=== PATIENT | male | born 1970 | race Caucasian/White ===

== ENCOUNTER 2018-04-05 15:36 | Inpatient (IN) | payer OTHER ==
[2018-04-05] MEDS ORDERED: SODIUM CHLORIDE 1,000 ML IV STA (15:52)
--- NOTE | 2018-04-05 15:52 | PDOC ---
History of Present Illness - General Chief Complaint: Chest Pain Stated Complaint: CHEST PAIN Time Seen by Provider: 04/05/18 15:40 History Source: Patient Exam Limitations: No Limitations - History of Present Illness Initial Comments: 47 yo M w a hx of HTN, HCL, hypothyroidism, KEVIN, depression presents to the ER [facility] for sudden onset severe Substernal chest pain which came on 1 hour prior to arrival. The patient was sitting down waiting for the train when the pain came on. The pain was rated 9/10 in intensity. He states this has never happened in the past. The pain was a stabbing like sensation without any radiation to the jaw, arm, neck or back. The pain was not associated with nausea , vomiting, or diaphoresis. The pain was associated with mild shortness of breath, which has now resolved in the ER. When EMS got to the patient they administered 4 aspirins and 2 nitros. The patient currently has no chest pain. EMS stated that the EKG on route was unimpressive. EMS states that when they got to the patient he was extremely hypertensive at 230/115. The patient did not take his usual BP meds today of losartan, hydralazine, metoprolol. He [place] the weekend and ran out of his meds. Patient denies any back pain, recent fevers, chills, infections, headache, blurry vision, neck pain, dysuria, frequency, urgency. PCP: NEElizabeth maier, no specific doctor Psh: None reported Allergies: NKA, NKDA Social Hx: Denies currently smoking, drinking or other substance usage. Past History - Past Medical History Allergies/Adverse Reactions: Allergies Allergy/AdvReac Type Severity Reaction Status Date / Time No Known Allergies Allergy Verified 04/05/18 18:22 Review of Systems - Review of Systems Able to Perform ROS?: Yes Constitutional: No: Chills, Diaphoresis, Fever, Loss of Appetite, Malaise, Weakness HEENTM: No: Blurred Vision, Tearing Respiratory: Yes: Orthopnea, Shortness of Breath, SOB with Exertion, SOB at Rest. No: Cough, Stridor, Wheezing Cardiac (ROS): Yes: Chest Pain, Lightheadedness, Chest Tightness. No: Irregular Heart Rate, Palpitations, Syncope ABD/GI: No: Abdominal Distended, Constipated, Diarrhea, Nausea, Poor Fluid Intake, Vomiting : No: Burning, Dysuria, Discharge, Frequency, Flank Pain, Hematuria Musculoskeletal: No: Back Pain, Joint Pain, Muscle Pain, Neck Pain Integumentary: No: See HPI, Bruising, Change in Color Neurological: No: Headache, Numbness, Paresthesia, Seizure, Tingling, Tremors Psychiatric: Yes: Anxiety, Depression Endocrine: No: Excessive Sweating, Flushing, Intolerance to Cold, Intolerance to Heat Hematologic/Lymphatic: No: Anemia, Blood Clots, Easy Bleeding *Physical Exam - Physical Exam General Appearance: Yes: Nourished, Appropriately Dressed, Apparent Distress, Mild Distress, Obese HEENT: positive: EOMI, VERONICA, Normal ENT Inspection, Normal Voice Neck: positive: Supple. negative: Rigid, Decreased range of motion, Lymphadenopathy (R), Lymphadenopathy (L) Respiratory/Chest: positive: Lungs Clear, Normal Breath Sounds. negative: Respiratory Distress, Accessory Muscle Use, Labored Respiration Cardiovascular: positive: Regular Rhythm, Regular Rate, S1, S2. negative: Edema , JVD, Murmur Vascular Pulses: Dorsalis-Pedis (R): 2+, Doralis-Pedis (L): 2+ Gastrointestinal/Abdominal: positive: Normal Bowel Sounds, Soft. negative: Guarding, Rebound Rectal Exam: positive: deferred Lymphatic: negative: Adenopathy Musculoskeletal: positive: Normal Inspection. 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 NML intact, Fully Oriented, Alert, Normal Mood/ Affect, Normal Response, Motor Strength /5 ED Treatment Course - LABORATORY CBC & Chemistry Diagram: 04/05/18 16:11 04/05/18 15:53 - ADDITIONAL ORDERS Additional order review: Laboratory Results 04/05/18 04/05/18 04/05/18 16:11 16:11 15:53 PT with INR 11.80 INR 1.00 PTT (Actin FS) 31.6 Sodium 142 Potassium 3.8 Chloride 106 Carbon Dioxide 31 Anion Gap 5 L BUN 19 H Creatinine 1.3 Creat Clearance w eGFR 58.67 Random Glucose 112 H Calcium 8.9 Magnesium 2.2 Total Bilirubin 0.4 AST 30 ALT 31 Alkaline Phosphatase 86 Creatine Kinase 141 Troponin I 0.23 H B-Natriuretic Peptide 1550.4 H Total Protein 6.6 Albumin 3.6 Lipase 217 Blood Type B POSITIVE Antibody Screen Negative 04/05/18 16:11 RBC 4.32 MCV 88.5 MCHC 36.0 H RDW 13.7 MPV 8.0 Neutrophils % 76.2 Lymphocytes % 11.7 Monocytes % 9.5 Eosinophils % 1.9 Basophils % 0.7 - RADIOLOGY Radiology Studies Ordered: Category Date Time Status CHEST PA & LAT [RAD] Stat Radiology 04/05/18 15:53 Ordered - Medications Given in the ED: ED Medications Discontinued Medications Generic Name Dose Route Start Last Admin Trade Name Freq PRN Reason Stop Dose Admin Sodium Chloride 1,000 mls @ 1,000 mls/hr 04/05/18 15:52 04/05/18 15:55 Normal Saline - IV 04/05/18 16:51 1,000 mls/hr ASDIR STA Administration Medical Decision Making - Medical Decision Making 47 yo M w a hx of HTN, HCL, hypothyroidism, KEVIN, depression presents to the ER [facility] for sudden onset severe Substernal chest pain which came on 1 hour prior to arrival. - Pain currently resolved. - Patient currently has no complaints. DDx IBNLT: ACS, Heart failure, GERD, Dissection, PE, MSk pain, esophagitis, PNA , Pneumothorax Plan: Labs, EKG, CXR, re-assess. - Troponin elevated to 0.23 - Patient is having an NSTEMI - will Admit to Tele and start treatment in the ER. - Cardiology Consulted - Dr. Efra Austin. *DC/Admit/Observation/Transfer Diagnosis at time of Disposition: NSTEMI (non-ST elevated myocardial infarction) - Discharge Dispostion Decision to Admit order: Yes - Referrals - Patient Instructions - Post Discharge Activity
[2018-04-05 16:25] LABS: HEMATOCRIT 38.2 % (35.4-49); HEMOGLOBIN 13.8 GM/dL (11.7-16.9); RBC 4.32 M/mm3 (4.00-5.60); WHITE BLOOD COUNT 5.2 K/mm3 (4.0-10.0)
[2018-04-05 16:26] LABS: BASO % 0.7 % (0-2.0); EOS % 1.9 % (0-4.5); LYMPH % 11.7 % (8-40); MCH 31.9 pg (25.7-33.7); MEAN CELL VOLUME 88.5 fl (80-96); MONO % 9.5 % (3.8-10.2); NEUT % 76.2 % (42.8-82.8); PLATELET COUNT 175 K/MM3 (134-434); RDW 13.7 % (11.9-15.9)
--- NOTE | 2018-04-05 16:45 | PDOC ---
Attending Attestation - Resident Resident Name: LibbymarthaFidencio - ED Attending Attestation I have performed the following: I have examined & evaluated the patient, The case was reviewed & discussed with the resident, I agree w/resident's findings & plan - [facility] HPI: 04/05/18 17:33 47 yo M w a hx of HTN, HCL, hypothyroidism, KEVIN, depression presents to the ER [facility] for sudden onset severe Substernal sharp chest pain which came on 1 hour prior to arrival, nonexertional and nonradiating. The pain was rated 9/10 in intensity. +mild shortness of breath, which has now resolved in the ER. EMS administered 4 aspirins and 2 nitros, with relief. EMS states that when they got to the patient he was extremely hypertensive at 230/115. The patient did not take his usual BP meds today of losartan, hydralazine, metoprolol. He is visiting [email or web address] for the weekend and ran out of his meds. No recent long travel history/immobilization or surgeries. +family history of SD/CAD in father in 60s 04/05/18 17:36 - Physicial Exam PE: 04/05/18 17:34 NAD, well appearing, PERRL, EOMI, nl conjunctiva, anicteric; neck supple. lungs clear, soft holosystolic murmur, abdomen soft nontender, morbidly obese. TURNER x4 , no focal neuro deficits. trace peripheral edema. normal color for ethnicity, WWP. no calf tenderness. 04/05/18 19:20 - Medical Decision Making 04/05/18 17:37 See HPI for details DDx chest pain: ACS, arrhythmia, angina, PE, dissection, PUD, esophageal spasm, GERD, gastritis, costochondritis, pneumonia, pleurisy, pericarditis/ myocarditis. dehydration, electrolyte/metabolic derangements. Considered but clinically doubt based on HPI and PE: PE/Dissection Vital signs reviewed, wnl. Prior notes reviewed, including admissions, discharges and consultations. laboratory results and imaging reviewed, basic labs and lytes wnl, normal coags. Cardiac panel_positive trop 0.23, elevated bnp 1500, could be atrial/ ventricular strain/chronic. EKG normal sinus rhythm, no interval abnormalities, normal axis, narrow QRS, ST and T wave segments and morphology normal. Nonspecific T wave abnormalities = no elevations/depressions ED course: ASA 162 mg x1 HEART score 7, high risk chest pain. Currently chest pain free. Given home dose hydralazine 50mg x1 now, HTN resolving, off meds, autoregulated. No events on tele monitor. Cardiology cs, [facility]. spoke with Dr Lyle, agree with lovenox and tele monitoring, possible cath to be determined in the morning after eval. Dispo: Admit for NSTEMI. Discussed results and management plan with pt and family member at bedside, agree with impression and plan Admit to hospitalist service, PMD in [place]. No prior cardiology visits/ physician. 04/05/18 17:43 04/05/18 19:21 Heart Score/ECG Review - History History: Moderately suspicious - Electrocardiogram EKG: Non specific repolarization disturbance - Age Age: 45-65 - Risk Factors Risk Factors Heart Score: Yes Hx Hypercholesterolemia, Yes Hx Hypertension, Yes Positive family hx of cardiac disease, Yes Hx Obesity Based on the list above the patient has:: >/=3 risk factors or Hx atherosclerotic disease - Troponin Troponin: >/=3x normal limit - Score Heart Score - Total: 7 - ECG Impressions Normal ECG: No Comment:: 04/05/18 17:43 EKG normal sinus rhythm, no interval abnormalities, normal axis, narrow QRS, ST and T wave segments and morphology normal. Nonspecific T wave abnormalities
[2018-04-05 16:55] LABS: PROTHROMBIN TIME (PATIENT) 11.8 SEC (9.7-13.0)
[2018-04-05 16:58] LABS: ACTIVATED PTT 31.6 SECONDS (25.2-36.5)
[2018-04-05 17:00] LABS: ALBUMIN 3.6 g/dl (3.4-5.0); ALK PHOS 86 U/L (45-117); ANION GAP 5 MMOL/L (8-16); BILIRUBIN,TOTAL 0.4 mg/dL (0.2-1); BLOOD UREA NITROGEN 19 mg/dL (7-18); CALCIUM 8.9 mg/dL (8.5-10.1); CHLORIDE 106 mmol/L (98-107); CO2 31 mmol/L (21-32); CREATININE 1.3 mg/dL (0.55-1.3); GLUCOSE,RANDOM 112 mg/dL (74-106); LIPASE 217 U/L (73-393); MAGNESIUM 2.2 mg/dL (1.8-2.4); N-TERMINAL BNP 1550.4 pg/ml (5-125); POTASSIUM 3.8 mmol/L (3.5-5.1); SGOT/AST 30 U/L (15-37); SGPT/ALT 31 U/L (13-61); SODIUM 142 mmol/L (136-145); TOT PROT 6.6 g/dl (6.4-8.2)
[2018-04-05] MEDS ORDERED: ASPIRIN 81 MG CHEWABLE TABLETS PO ONE ×2 (17:16)
[2018-04-05] MEDS ORDERED: hydrALAZINE HCL 50 MG TABLET (FP) PO ONE (17:29)
[2018-04-05] MEDS ORDERED: ENOXAPARIN NA (PORCINE) 120 MG/0.8 ML DISP.SYRIN SQ SCH (17:45)
--- NOTE | 2018-04-05 18:22 | HP ---
CHIEF COMPLAINT: chest pain PCP: @ [facility] HISTORY OF PRESENT ILLNESS: Patient is a 47 year old male with a significant past medical history of hypertension, HLD, hypothyroidism, KEVIN, morbid obesity and depression. Patient presents to the ED via EMS for sudden onset of severe chest pain that he describes as sharp and unrelenting. Patient states the pain was non radiating and associated with shortness of breath. Chest pain now resolved after he was given Nitrogycerin 2 tabs and ASA 325mg by EMS. He was also noted to be extremely hypertensive while en route to the ED. Patient states that he did not take his cardiac medications for the past few days because he ran out of his medications. He denies any recent travel, denies any surgeries or prolonged immobilization. ER course was notable for: (1) trop 0.23 (2) ekg nsr left atrial enlargement, prolonged qt @ 483 (3) bnp 1600 Recent Travel: none PAST MEDICAL HISTORY: PAST SURGICAL HISTORY: Social History:+family history of MA/CAD in father in 60s Smoking: n/a Alcohol: n/a Drugs: n/a Family History: Allergies No Known Allergies Allergy (Verified 04/05/18 18:22) PHYSICAL EXAMINATION GENERAL: Awake, alert, and fully oriented, in no acute distress. HEAD: Normal with no signs of trauma. EYES: Pupils equal, round and reactive to light, extraocular movements intact, sclera anicteric, conjunctiva clear. No lid lag. EARS, NOSE, THROAT: Ears normal, nares patent, oropharynx clear without exudates. Moist mucous membranes. NECK: Normal range of motion, supple without lymphadenopathy, JVD, or masses. LUNGS: Breath sounds equal, clear to auscultation bilaterally. No wheezes, and no crackles. No accessory muscle use. HEART: Regular rate and rhythm, normal S1 and S2 without murmur, rub or gallop. ABDOMEN: Soft, nontender, not distended, normoactive bowel sounds, no guarding, no rebound, no masses. No hepatomegaly or splenomegaly. MUSCULOSKELETAL: Normal range of motion at all joints. No bony deformities or tenderness. No CVA tenderness. UPPER EXTREMITIES: 2+ pulses, warm, well-perfused. No cyanosis. No clubbing. No peripheral edema. LOWER EXTREMITIES: 2+ pulses, warm, well-perfused. No calf tenderness. No peripheral edema. NEUROLOGICAL: Cranial nerves II-XII intact. Normal speech. Normal gait. PSYCHIATRIC: Cooperative. Good eye contact. Appropriate mood and affect. SKIN: Warm, dry, normal turgor, no rashes or lesions noted, normal capillary refill. Laboratory Results - last 24 hr 04/05/18 04/05/18 04/05/18 15:53 16:11 16:11 WBC 5.2 RBC 4.32 Hgb 13.8 Hct 38.2 MCV 88.5 MCH 31.9 MCHC 36.0 H RDW 13.7 Plt Count 175 MPV 8.0 Absolute Neuts (auto) 4.0 Neutrophils % 76.2 Lymphocytes % 11.7 Monocytes % 9.5 Eosinophils % 1.9 Basophils % 0.7 Nucleated RBC % 0 PT with INR 11.80 INR 1.00 PTT (Actin FS) 31.6 Sodium 142 Potassium 3.8 Chloride 106 Carbon Dioxide 31 Anion Gap 5 L BUN 19 H Creatinine 1.3 Creat Clearance w eGFR 58.67 Random Glucose 112 H Calcium 8.9 Magnesium 2.2 Total Bilirubin 0.4 AST 30 ALT 31 Alkaline Phosphatase 86 Creatine Kinase 141 Troponin I 0.23 H B-Natriuretic Peptide 1550.4 H Total Protein 6.6 Albumin 3.6 Lipase 217 Blood Type Antibody Screen 04/05/18 16:11 WBC RBC Hgb Hct MCV MCH MCHC RDW Plt Count MPV Absolute Neuts (auto) Neutrophils % Lymphocytes % Monocytes % Eosinophils % Basophils % Nucleated RBC % PT with INR INR PTT (Actin FS) Sodium Potassium Chloride Carbon Dioxide Anion Gap BUN Creatinine Creat Clearance w eGFR Random Glucose Calcium Magnesium Total Bilirubin AST ALT Alkaline Phosphatase Creatine Kinase Troponin I B-Natriuretic Peptide Total Protein Albumin Lipase Blood Type B POSITIVE Antibody Screen Negative ASSESSMENT/PLAN: Patient is a 47 year old male with a significant past medical history of hypertension, HLD, hypothyroidism, KEVIN, morbid obesity and depression. Patient presents to the ED via EMS for sudden onset of severe chest pain that he describes as sharp and unrelenting. Patient states the pain was non radiating and associated with shortness of breath. Chest pain now resolved after he was given Nitrogycerin 2 tabs and ASA 325mg by EMS. He was also noted to be extremely hypertensive while en route to the ED. Patient states that he did not take his cardiac medications for the past few days because he ran out of his medications. He denies any recent travel, denies any surgeries or prolonged immobilization. ER course was notable for: (1) trop 0.23 (2) ekg nsr left atrial enlargement, prolonged qt @ 483 Chest pain, acute Rule out ACS monitor on tele Given full dose lovenox 150mg and asa 325mg with nitro tabs trend troponins, 1st troponin elevated @ .23 Nitro prn for chest pain Monitor BP in the setting of medication non compliance cardiology consulted repeat EKG in a.m. and monitor qtc echo ordered Hypertension, uncontrolled Monitor BP, patient reports non compliance with home meds HLD Lipid panel in a.m. [id number] ordered Endocrine TSH in a.m. hx of Hypothyroidism, on synthroid Depression On anti depressants monitor qtc with daily ekgs fen oral intake sufficient monitor electrolytes low salt diet prophy lovenox Visit type - Emergency Visit Emergency Visit: Yes ED Registration Date: 04/05/18 Care time: The patient presented to the Emergency Department on the above date and was hospitalized for further evaluation of their emergent condition. - New Patient This patient is new to me today: Yes Date on this admission: 04/06/18 - Critical Care Critical Care patient: No
[2018-04-05] MEDS ORDERED: NITROGLYCERIN SUBLINGUAL 1/200 0.3 MG BTL SL PRN (18:23)
[2018-04-05] MEDS ORDERED: ENOXAPARIN 120 MG, ENOXAPARIN 30 MG SQ ONE (18:45)
[2018-04-05] MEDS ORDERED: hydrALAZINE HCL 25 MG TABLET (FP) ONE (20:38)
[2018-04-05] MEDS ORDERED: ASPIRIN 81 MG CHEWABLE TABLETS ONE (20:38)
[2018-04-05] MEDS ORDERED: ENOXAPARIN NA (PORCINE) 100 MG/1 ML DISP.SYRIN SQ ONE (20:39)
[2018-04-05] MEDS ORDERED: ENOXAPARIN NA (PORCINE) 60 MG/0.6 ML DISP.SYRIN SQ ONE (20:39)
[2018-04-05] MEDS ORDERED: ATORVASTATIN CA 40 MG TABLET (FP) PO SCH (22:00)
[2018-04-05] MEDS ORDERED: ATORVASTATIN CA 40 MG TABLET (FP) ONE (22:16)
[2018-04-05] MEDS: hydrALAZINE HCL 50 MG TABLET (FP) PO SCH (22:16)
[2018-04-06 05:46] LABS: BASO % 0.9 % (0-2.0); EOS % 2.7 % (0-4.5); HEMOGLOBIN 13.8 GM/dL (11.7-16.9); LYMPH % 13.7 % (8-40); MCH 29.9 pg (25.7-33.7); MCHC 33.6 g/dl (32.0-35.9); MEAN CELL VOLUME 89.2 fl (80-96); MEAN PLT VOLUME 7.8 fl (7.5-11.1); MONO % 10.6 % (3.8-10.2); NEUT % 72.1 % (42.8-82.8); PLATELET COUNT 155 K/MM3 (134-434); RDW 13.7 % (11.9-15.9); WHITE BLOOD COUNT 5.3 K/mm3 (4.0-10.0)
[2018-04-06 06:44] LABS: ALBUMIN 3.3 g/dl (3.4-5.0); ALK PHOS 72 U/L (45-117); ANION GAP 7 MMOL/L (8-16); BILIRUBIN,TOTAL 0.7 mg/dL (0.2-1); BLOOD UREA NITROGEN 17 mg/dL (7-18); CALCIUM 8.5 mg/dL (8.5-10.1); CHLORIDE 106 mmol/L (98-107); CO2 28 mmol/L (21-32); GLUCOSE,RANDOM 104 mg/dL (74-106); POTASSIUM 3.7 mmol/L (3.5-5.1); SGOT/AST 34 U/L (15-37); SGPT/ALT 34 U/L (13-61); SODIUM 141 mmol/L (136-145); TOT PROT 6.5 g/dl (6.4-8.2)
[2018-04-06] MEDS ORDERED: LEVOTHYROXINE NA 175 MCG TABLET PO SCH (07:00)
[2018-04-06] MEDS ORDERED: hydrALAZINE HCL 25 MG TABLET (FP) ONE (08:20)
[2018-04-06] MEDS: hydrALAZINE HCL 50 MG TABLET (FP) PO SCH ×2 (08:22→15:06)
[2018-04-06] MEDS ORDERED: CITALOPRAM HYDROBROMIDE 20 MG TABLET (FP) PO SCH (10:00)
[2018-04-06] MEDS ORDERED: FUROSEMIDE 40 MG TABLET (FP) PO SCH (10:00)
[2018-04-06] MEDS ORDERED: ASPIRIN COATED 81 MG TABLET.EC PO SCH (10:00)
[2018-04-06] MEDS ORDERED: METOPROLOL TARTRATE 50 MG TABLET (FP) PO SCH ×2 (10:00→22:00)
--- NOTE | 2018-04-06 11:27 | EKG ---
Test Reason : Blood Pressure : / mmHG Vent. Rate : 079 BPM Atrial Rate : 079 BPM P-R Int : 148 ms QRS Dur : 104 ms QT Int : 422 ms P-R-T Axes : 026 024 089 degrees QTc Int : 483 ms POOR DATA QUALITY, INTERPRETATION MAY BE ADVERSELY AFFECTED NORMAL SINUS RHYTHM POSSIBLE LEFT ATRIAL ENLARGEMENT NONSPECIFIC T WAVE ABNORMALITY PROLONGED QT ABNORMAL ECG NO PREVIOUS ECGS AVAILABLE Confirmed by YANELI MOORE, JONATAN ([id number]) on 04/06/2018 11:27:24 AM Referred By: Confirmed By:JONATAN GROVES MD
[2018-04-06 12:53] LABS: URINE APPEARANCE CLEAR; URINE BILIRUBIN NEGATIVE (<2.0 mg/dL); URINE COLOR LTYELLOW; URINE GLUCOSE (UA) NEGATIVE (NEGATIVE); URINE KETONE NEGATIVE (NEGATIVE); URINE LEUK ESTERASE NEGATIVE (NEGATIVE); URINE NITRITE NEGATIVE (NEGATIVE); URINE PROTEIN NEGATIVE (NEGATIVE)
[2018-04-06 14:41] VITALS: BMI 48.8
[2018-04-06] MEDS ORDERED: ENOXAPARIN NA (PORCINE) 120 MG/0.8 ML DISP.SYRIN SQ ONE (15:00)
--- NOTE | 2018-04-06 15:58 | CON.CARD ---
Consult Consult Specialty:: Cardiology - History of Present Illness Chief Complaint: Chest pain History of Present Illness: This is a 47 year old male with a PMH of HTN and obesity. He presents now with an episode of severe sharp chest pain. He missed 2 days of his antihypertensive regimen consisting of losartan, hydralazine, and metoprolol. EMS found a BP of 230/115 mmHg. The CP was stabbing, non radiating, and non exertional. Troponin are 0.23, 0.26, and 0.23. EKG without acute changes. Presently in the ICU he is CP free. - Alcohol/Substance Use Hx Alcohol Use: No - Smoking History Smoking history: Never smoked Have you smoked in the past 12 months: No Home Medications - Allergies Allergies/Adverse Reactions: Allergies Allergy/AdvReac Type Severity Reaction Status Date / Time No Known Allergies Allergy Verified 04/05/18 18:22 - Home Medications Home Medications: Ambulatory Orders Aspirin [ASA -] 81 mg PO DAILY 04/05/18 Atorvastatin Ca [Lipitor] 40 mg PO HS 04/05/18 Citalopram Hydrobromide [Citalopram HBr] 20 mg PO DAILY 04/05/18 Furosemide [Lasix] 40 mg PO DAILY 04/05/18 Hydralazine HCl 50 mg PO TID 04/05/18 Levothyroxine [Synthroid -] 175 mcg PO DAILY 04/05/18 Lisinopril [Prinivil -] 40 mg PO DAILY 04/05/18 Metoprolol Tartrate 100 mg PO DAILY 04/05/18 Vital Signs: Vital Signs Temperature 98.6 F 04/06/18 14:22 Pulse Rate 120 H 04/06/18 14:22 Respiratory Rate 25 H 04/06/18 14:22 Blood Pressure 164/105 H 04/06/18 14:22 O2 Sat by Pulse Oximetry (%) 98 04/06/18 10:00 Constitutional: Yes: Well Nourished, No Distress Eyes: Yes: WNL HENT: Yes: WNL Neck: Yes: WNL Respiratory: Yes: CTA Bilaterally Gastrointestinal: Yes: Normal Bowel Sounds Cardiovascular: Yes: Regular Rate and Rhythm Heart Sounds: Yes: S1, S2 (NO MRHG) Extremities: Yes: WNL Edema: No Neurological: Yes: Alert, Oriented (Non focal) - Other Data Labs, Other Data: CBC, BMP 04/06/18 05:12 04/06/18 05:12 INR, PTT INR 1.00 (0.83-1.09) 04/05/18 16:11 Troponin, BNP 04/05/18 04/05/18 04/06/18 15:53 19:00 00:20 Troponin I 0.23 H 0.26 H B-Natriuretic Peptide 1550.4 H 1689.5 H 04/06/18 05:12 Troponin I 0.23 H B-Natriuretic Peptide Troponin, BNP 04/05/18 04/05/18 04/06/18 15:53 19:00 00:20 Troponin I 0.23 H 0.26 H B-Natriuretic Peptide 1550.4 H 1689.5 H 04/06/18 05:12 Troponin I 0.23 H B-Natriuretic Peptide Assessment/Plan 47 year old male with a PMH of HTN and obesity. He presents now with an episode of severe sharp chest pain. He missed 2 days of his antihypertensive regimen consisting of losartan, hydralazine, and metoprolol. EMS found a BP of 230/115 mmHg. The CP was stabbing, non radiating, and non exertional. Troponin are 0.23 , 0.26, and 0.23. EKG without acute changes. He also gets exertional chest pain on occasion. Chest pain Sharp, in the setting of a very high BP Would obtain a Chest CT to rule out dissection Coronary disease is another possibility. Agree with Metoprolol, but would give tartrate twice daily, so would give metoprolol tartrate 50 mg twice daily. Continue Hydralizine 50 mg PO TID and Lasix 40 mg PO daily Continue ASA 81 mg daily Continue trending enzymes, if CT scan is negative for dissection and enzymes are trending up, or chest pain returns, would AC with lovenox. Will arrange for transfer to [facility] in the AM for a for cardiac cath.
--- NOTE | 2018-04-06 17:17 | PN ---
Physical Exam: SUBJECTIVE: Patient seen and examined in tele icu. denies chest pain or shortness of breath. OBJECTIVE: Vital Signs Period Temp Pulse Resp BP Sys/Serna Pulse Ox Last 24 Hr 98.0 F-98.6 F 77-121 16-25 164-184/77-105 96-100 GENERAL: Awake, alert, and fully oriented, in no acute distress. HEAD: Normal with no signs of trauma. EYES: Pupils equal, round and reactive to light, extraocular movements intact, sclera anicteric, conjunctiva clear. No lid lag. EARS, NOSE, THROAT: Ears normal, nares patent, oropharynx clear without exudates. Moist mucous membranes. NECK: Normal range of motion, supple without lymphadenopathy, JVD, or masses. LUNGS: Breath sounds equal, clear to auscultation bilaterally. No wheezes, and no crackles. No accessory muscle use. HEART: Regular rate and rhythm, normal S1 and S2 without murmur, rub or gallop. ABDOMEN: Soft, nontender, not distended, normoactive bowel sounds, no guarding, no rebound, no masses. No hepatomegaly or splenomegaly. MUSCULOSKELETAL: Normal range of motion at all joints. No bony deformities or tenderness. No CVA tenderness. UPPER EXTREMITIES: 2+ pulses, warm, well-perfused. No cyanosis. No clubbing. No peripheral edema. LOWER EXTREMITIES: 2+ pulses, warm, well-perfused. No calf tenderness. No peripheral edema. NEUROLOGICAL: Cranial nerves II-XII intact. Normal speech. Normal gait. PSYCHIATRIC: Cooperative. Good eye contact. Appropriate mood and affect. SKIN: Warm, dry, normal turgor, no rashes or lesions noted, normal capillary refill. Laboratory Results - last 24 hr 04/05/18 04/05/18 04/05/18 16:11 19:00 19:00 WBC RBC Hgb Hct MCV MCH MCHC RDW Plt Count MPV Absolute Neuts (auto) Neutrophils % Lymphocytes % Monocytes % Eosinophils % Basophils % Nucleated RBC % Sodium Potassium Chloride Carbon Dioxide Anion Gap BUN Creatinine Creat Clearance w eGFR Random Glucose Hemoglobin A1c % Calcium Magnesium Total Bilirubin AST ALT Alkaline Phosphatase Troponin I B-Natriuretic Peptide 1689.5 H Total Protein Albumin Triglycerides Cholesterol Total LDL Cholesterol HDL Cholesterol TSH Free T4 Urine Color Urine Appearance Urine pH Ur Specific [place] Urine Protein Urine Glucose (UA) Urine Ketones Urine Blood Urine Nitrite Urine Bilirubin Urine Urobilinogen Ur Leukocyte Esterase Blood Type B POSITIVE B POSITIVE Antibody Screen Negative 04/06/18 04/06/18 04/06/18 00:20 05:12 05:12 WBC 5.3 RBC 4.60 Hgb 13.8 Hct 41.0 MCV 89.2 MCH 29.9 MCHC 33.6 RDW 13.7 Plt Count 155 MPV 7.8 Absolute Neuts (auto) 3.9 Neutrophils % 72.1 Lymphocytes % 13.7 Monocytes % 10.6 H Eosinophils % 2.7 Basophils % 0.9 Nucleated RBC % 0 Sodium 141 Potassium 3.7 Chloride 106 Carbon Dioxide 28 Anion Gap 7 L BUN 17 Creatinine 1.0 Creat Clearance w eGFR > 60 Random Glucose 104 Hemoglobin A1c % Calcium 8.5 Magnesium 2.0 Total Bilirubin 0.7 AST 34 ALT 34 Alkaline Phosphatase 72 Troponin I 0.26 H B-Natriuretic Peptide Total Protein 6.5 Albumin 3.3 L Triglycerides Cholesterol Total LDL Cholesterol HDL Cholesterol TSH 10.90 H Free T4 Urine Color Urine Appearance Urine pH Ur Specific [place] Urine Protein Urine Glucose (UA) Urine Ketones Urine Blood Urine Nitrite Urine Bilirubin Urine Urobilinogen Ur Leukocyte Esterase Blood Type Antibody Screen 04/06/18 04/06/18 04/06/18 05:12 05:12 11:30 WBC RBC Hgb Hct MCV MCH MCHC RDW Plt Count MPV Absolute Neuts (auto) Neutrophils % Lymphocytes % Monocytes % Eosinophils % Basophils % Nucleated RBC % Sodium Potassium Chloride Carbon Dioxide Anion Gap BUN Creatinine Creat Clearance w eGFR Random Glucose Hemoglobin A1c % 5.8 Calcium Magnesium Total Bilirubin AST ALT Alkaline Phosphatase Troponin I 0.23 H B-Natriuretic Peptide Total Protein Albumin Triglycerides 154 H Cholesterol 157 Total LDL Cholesterol 90 HDL Cholesterol 41 TSH Free T4 0.73 L Urine Color Ltyellow Urine Appearance Clear Urine pH 7.0 Ur Specific [place] 1.015 Urine Protein Negative Urine Glucose (UA) Negative Urine Ketones Negative Urine Blood Negative Urine Nitrite Negative Urine Bilirubin Negative Urine Urobilinogen 2.0 Ur Leukocyte Esterase Negative Blood Type Antibody Screen Active Medications Generic Name Dose Route Start Last Admin Trade Name Freq PRN Reason Stop Dose Admin Aspirin 81 mg 04/06/18 10:00 04/06/18 10:38 Ecotrin - PO 81 mg DAILY KAROLYN Administration Atorvastatin Calcium 40 mg 04/05/18 22:00 04/05/18 22:22 Lipitor - PO 40 mg HS KAROLYN Administration Citalopram Hydrobromide 20 mg 04/06/18 10:00 04/06/18 10:39 Celexa - PO 20 mg DAILY KAROLYN Administration Enoxaparin Sodium 120 mg/ 150 mg 04/07/18 03:00 Enoxaparin Sodium 30 mg SQ Q12H KAROLYN Furosemide 40 mg 04/06/18 10:00 04/06/18 10:39 Lasix - PO 40 mg DAILY KAROLYN Administration Hydralazine HCl 50 mg 04/05/18 22:00 04/06/18 15:06 Apresoline - PO 50 mg TID KAROLYN Administration Levothyroxine Sodium 175 mcg 04/06/18 07:00 04/06/18 11:21 Synthroid - PO 175 mcg DAILY@0700 KAROLYN Administration Metoprolol Tartrate 50 mg 04/06/18 22:00 Lopressor - PO BID KAROLYN Nitroglycerin 0.3 mg 04/05/18 18:23 Nitrostat - SL Q5M PRN FOR CHEST PAIN ASSESSMENT/PLAN: Patient is a 47 year old male with a significant past medical history of hypertension, HLD, hypothyroidism, KEVIN, morbid obesity and depression. Patient presents to the ED via EMS for sudden onset of severe chest pain that he describes as sharp and unrelenting. Patient states the pain was non radiating and associated with shortness of breath. Chest pain resolved after he was given Nitrogycerin 2 tabs and ASA 325mg by EMS. Cardiology: Chest pain, resolved. troponins 0.23, 0.26, 0.23 On Lovenox 150mg bid patient for cardiac cath tomorrow as per cardiology recommendations, ct scan of chest w/contrast ordered to r/o dissection. Will continue to trend trops. Echo orderd Hypertension, uncontrolled Metoprolol changed to metoprolol succ 50mg bid. monitor bp HLD Lipid panel in a.m. [id number] Endocrine hx of Hypothyroidism, on synthroid TSH elevated patient non compliance with synthroid (admits to missing some doses) Will need repeat tsh level outpatient Depression On anti depressants monitor qtc fen oral intake sufficient monitor electrolytes low salt diet prophy lovenox bid Visit type - Emergency Visit Emergency Visit: Yes ED Registration Date: 04/05/18 Care time: The patient presented to the Emergency Department on the above date and was hospitalized for further evaluation of their emergent condition. - New Patient This patient is new to me today: No - Critical Care Critical Care patient: No - Discharge Referral Referred to [id number] Med P.C.: No
[2018-04-06 18:08] VITALS: TEMP 98.2
[2018-04-06] MEDS ORDERED: hydrALAZINE HCL 50 MG TABLET (FP) PO ONE (19:30)
[2018-04-06 19:46] VITALS: BP 187/105; PULSE 73
--- NOTE | 2018-04-06 20:32 | DS ---
Physical Exam: SUBJECTIVE: Patient seen and examined at the bedside. OBJECTIVE: Vital Signs Period Temp Pulse Resp BP Sys/Serna Pulse Ox Last 24 Hr 98.0 F-98.6 F 70-110 16-25 148-187/72-105 96-100 PHYSICAL EXAM GENERAL: Awake, alert, and fully oriented, in no acute distress. HEAD: Normal with no signs of trauma. EYES: Pupils equal, round and reactive to light, extraocular movements intact, sclera anicteric, conjunctiva clear. No lid lag. EARS, NOSE, THROAT: Ears normal, nares patent, oropharynx clear without exudates. Moist mucous membranes. NECK: Normal range of motion, supple without lymphadenopathy, JVD, or masses. LUNGS: Breath sounds equal, clear to auscultation bilaterally. No wheezes, and no crackles. No accessory muscle use. HEART: Regular rate and rhythm, normal S1 and S2 without murmur, rub or gallop. ABDOMEN: Soft, nontender, not distended, normoactive bowel sounds, no guarding, no rebound, no masses. No hepatomegaly or splenomegaly. MUSCULOSKELETAL: Normal range of motion at all joints. No bony deformities or tenderness. No CVA tenderness. UPPER EXTREMITIES: 2+ pulses, warm, well-perfused. No cyanosis. No clubbing. No peripheral edema. LOWER EXTREMITIES: 2+ pulses, warm, well-perfused. No calf tenderness. No peripheral edema. NEUROLOGICAL: Normal speech. Normal gait. PSYCHIATRIC: Cooperative. Good eye contact. Appropriate mood and affect. SKIN: Warm, dry, normal turgor, no rashes or lesions noted, normal capillary refill. LABS Laboratory Results - last 24 hr 04/05/18 04/06/18 04/06/18 19:00 00:20 05:12 WBC RBC Hgb Hct MCV MCH MCHC RDW Plt Count MPV Absolute Neuts (auto) Neutrophils % Lymphocytes % Monocytes % Eosinophils % Basophils % Nucleated RBC % Sodium 141 Potassium 3.7 Chloride 106 Carbon Dioxide 28 Anion Gap 7 L BUN 17 Creatinine 1.0 Creat Clearance w eGFR > 60 Random Glucose 104 Hemoglobin A1c % Calcium 8.5 Magnesium 2.0 Total Bilirubin 0.7 AST 34 ALT 34 Alkaline Phosphatase 72 Troponin I 0.26 H Total Protein 6.5 Albumin 3.3 L Triglycerides Cholesterol Total LDL Cholesterol HDL Cholesterol TSH 10.90 H Free T4 Urine Color Urine Appearance Urine pH Ur Specific [place] Urine Protein Urine Glucose (UA) Urine Ketones Urine Blood Urine Nitrite Urine Bilirubin Urine Urobilinogen Ur Leukocyte Esterase Blood Type B POSITIVE 04/06/18 04/06/18 04/06/18 05:12 05:12 05:12 WBC 5.3 RBC 4.60 Hgb 13.8 Hct 41.0 MCV 89.2 MCH 29.9 MCHC 33.6 RDW 13.7 Plt Count 155 MPV 7.8 Absolute Neuts (auto) 3.9 Neutrophils % 72.1 Lymphocytes % 13.7 Monocytes % 10.6 H Eosinophils % 2.7 Basophils % 0.9 Nucleated RBC % 0 Sodium Potassium Chloride Carbon Dioxide Anion Gap BUN Creatinine Creat Clearance w eGFR Random Glucose Hemoglobin A1c % 5.8 Calcium Magnesium Total Bilirubin AST ALT Alkaline Phosphatase Troponin I 0.23 H Total Protein Albumin Triglycerides 154 H Cholesterol 157 Total LDL Cholesterol 90 HDL Cholesterol 41 TSH Free T4 0.73 L Urine Color Urine Appearance Urine pH Ur Specific [place] Urine Protein Urine Glucose (UA) Urine Ketones Urine Blood Urine Nitrite Urine Bilirubin Urine Urobilinogen Ur Leukocyte Esterase Blood Type 04/06/18 04/06/18 11:30 18:00 WBC RBC Hgb Hct MCV MCH MCHC RDW Plt Count MPV Absolute Neuts (auto) Neutrophils % Lymphocytes % Monocytes % Eosinophils % Basophils % Nucleated RBC % Sodium Potassium Chloride Carbon Dioxide Anion Gap BUN Creatinine Creat Clearance w eGFR Random Glucose Hemoglobin A1c % Calcium Magnesium Total Bilirubin AST ALT Alkaline Phosphatase Troponin I 0.17 H Total Protein Albumin Triglycerides Cholesterol Total LDL Cholesterol HDL Cholesterol TSH Free T4 Urine Color Ltyellow Urine Appearance Clear Urine pH 7.0 Ur Specific [place] 1.015 Urine Protein Negative Urine Glucose (UA) Negative Urine Ketones Negative Urine Blood Negative Urine Nitrite Negative Urine Bilirubin Negative Urine Urobilinogen 2.0 Ur Leukocyte Esterase Negative Blood Type HOSPITAL COURSE: Date of Admission:04/05/18 Date of Discharge: 04/06/18 Patient is a 47 year old male with a significant past medical history of hypertension, HLD, hypothyroidism, KEVIN, morbid obesity and depression. Patient presents to the ED via EMS for sudden onset of severe chest pain that he describes as sharp and unrelenting. Patient states the pain was non radiating and associated with shortness of breath. Chest pain resolved after he was given Nitrogycerin 2 tabs and ASA 325mg by EMS. Hospital course by problem list: Cardiology: Chest pain, resolved. troponins 0.23, 0.26, 0.23 On Lovenox 150mg bid patient for cardiac cath at [facility] as per cardiology recommendations, ct scan of chest w/contrast ordered to r/o dissection. Will continue to trend trops. Echo ordered Hypertension, uncontrolled Metoprolol changed to metoprolol succ 50mg bid. monitor bp HLD Lipid panel reviewed [id number] within normal limits continue statin therapy Endocrine hx of Hypothyroidism, on synthroid TSH elevated patient non compliant with synthroid (admits to missing some doses at home) Will need repeat tsh level outpatient Depression On anti depressants monitor qtc fen oral intake sufficient monitor electrolytes low salt diet prophy lovenox bid Disposition: Transfer to [facility] cardiac cath for chest pain/NSTEMI. Minutes to complete discharge: 60 Discharge Summary Reason For Visit: NON-ST ELEVATION MYOCARDIAL INFARCTION/CHEST PAIN Condition: Guarded - Instructions Diet, Activity, Other Instructions: transfer to [facility] cardia cath Disposition: TRANSFER ACUTE CARE/OTHER HOSP - Home Medications Comprehensive Discharge Medication List: Ambulatory Orders Aspirin [ASA -] 81 mg PO DAILY 04/05/18 Atorvastatin Ca [Lipitor] 40 mg PO HS 04/05/18 Citalopram Hydrobromide [Citalopram HBr] 20 mg PO DAILY 04/05/18 Furosemide [Lasix] 40 mg PO DAILY 04/05/18 Hydralazine HCl 50 mg PO TID 04/05/18 Levothyroxine [Synthroid -] 175 mcg PO DAILY 04/05/18 Lisinopril [Prinivil -] 40 mg PO DAILY 04/05/18 Metoprolol Tartrate 100 mg PO DAILY 04/05/18 This patient is new to me today: No Emergency Visit: Yes ED Registration Date: 04/05/18 Care time: The patient presented to the Emergency Department on the above date and was hospitalized for further evaluation of their emergent condition. Critical Care patient: No - Discharge Referral Referred to [facility] Med P.C.: No
[2018-04-07] MEDS ORDERED: ENOXAPARIN NA (PORCINE) 120 MG/0.8 ML DISP.SYRIN SQ SCH (03:00)
[2018-04-07] MEDS ORDERED: ENOXAPARIN 120 MG, ENOXAPARIN 30 MG SQ SCH (03:00)
== END 2018-04-06 19:48 | disposition short-term general hospital (02) | DRG 190 ==
LOC: JER 15:36 → JERBED 17:29 → UNDOADMIN 18:03 → JERBED 18:03 → J2W 04-06 09:24
PROVIDERS: ADMIT Internal Medicine; ATTEND Nurse Practitioner Family
DX: I21.4 Non-ST elevation (NSTEMI) myocardial infarction (principal); R07.89 Other chest pain; G47.33 Obstructive sleep apnea (adult) (pediatric); E03.9 Hypothyroidism, unspecified; I10 Essential (primary) hypertension; F32.9 Major depressive disorder, single episode, unspecified; E66.01 Morbid (severe) obesity due to excess calories; Z68.42 Body mass index [BMI] 45.0-49.9, adult; I45.81 Long QT syndrome; Z91.14 Patient's other noncompliance with medication regimen; Z82.49 Family history of ischemic heart disease and other diseases of the circulatory system
CPT/HCPCS: 36415; 71046-TC-FY; 80053; 80061; 81003; 82550; 83036; 83690; 83721; 83735; 83880; 84439; 84443; 84481; 84484; 85025; 85610; 85730; 86850; 86900; 86901; 93005; 93010; 99285-25; J7030